=== PATIENT | male | born 1965 | race Caucasian/White ===

== ENCOUNTER 2020-09-25 16:22 | Observation (INO) ==
[2020-09-25 17:51] LABS: Basophils % 0.2 %; Eosinophils # 0.1 K/mcL (0.0-0.6); Eosinophils % 2.8 %; Hematocrit 39.4 % (37.5-50.1); Hemoglobin 12.2 g/dL (12.9-16.9); Immature Granulocytes % 0.2 % (0-4); Lymphocytes # 0.8 K/mcL (0.6-4.6); Lymphocytes % 19.1 %; Mean Corpuscular Hemoglobin 27.2 pg (28.0-33.3); Mean Corpuscular Volume 87.8 fL (83.0-100.0); Mean Platelet Volume 11.3 fL (9.4-12.4); Monocytes # 0.5 K/mcL (0.0-1.3); Monocytes % 12.5 %; Neutrophils # 2.8 K/mcL (1.6-8.9); Platelet Count 205 K/mcL (140-400); Red Blood Count 4.49 M/mcL (4.19-5.50); Red Cell Distribution Width 13.3 % (11.5-14.5); Segmented Neutrophils % 65.2 %; White Blood Count 4.3 K/mcL (4.3-11.1)
[2020-09-25 18:08] LABS: BUN/Creatinine Ratio 18 (6-26); Blood Urea Nitrogen 12 mg/dL (6-20); Calcium 9.4 mg/dL (8.6-10.3); Carbon Dioxide 32 mEq/L (23-29); Chloride 100 mEq/L (98-107); Glucose 130 mg/dL (70-105); Osmolality,Calculated 296 (280-300); Sodium 142 mEq/L (136-145); eGFR For African Americans > 60 (> 60); eGFR For Non-African Americans > 60 (> 60)
[2020-09-25] MEDS ORDERED: Naloxone 0.4 MG/ML INJ IVP PRN (22:07)
[2020-09-25] MEDS ORDERED: *HR* LORazepam 1 MG TABLET PO PRN (22:09)
[2020-09-25] MEDS ORDERED: modafiniL 100 MG TABLET PO SCH (22:15)
[2020-09-25] MEDS: Pregabalin 75 MG CAPSULE PO SCH (23:55)
[2020-09-25] MEDS: lamoTRIgine 100 MG TABLET PO SCH (23:55)
[2020-09-26 07:02] VITALS: BP 105/65
[2020-09-26] MEDS: lamoTRIgine 100 MG TABLET PO SCH (08:24)
[2020-09-26] MEDS: Pregabalin 75 MG CAPSULE PO SCH (08:24)
[2020-09-26] MEDS ORDERED: Mirtazapine 15 MG TABLET PO SCH (21:00)
== END 2020-09-26 10:59 | disposition home or self-care (01) ==
LOC: 3BNU 16:22 → EMEROOARM 16:22 → 3BNU 21:59
PROVIDERS: ADMIT Family Medicine; ATTEND Family Medicine